=== PATIENT | male | born 1940 | race Native Hawaiian/Other Pacific Islander ===

== ENCOUNTER 2016-08-11 14:44 | Inpatient (IN) | payer MEDICARE, BC ==
[2016-08-11] VITALS (7 sets, daily range): BP systolic 130–144; BP diastolic 69–81; PULSE 99–110; RESP 16–26; TEMP 98.7–100.1; O2SAT 96–99
[~2016-08-11] VITALS: Ht 167.6 cm; Wt 70.0 kg
[~2016-08-11 14:44] MED LIST: FLOR250C PO; LEVA500T PO; VENL-39 PO
[2016-08-11] MEDS ORDERED: SODIUM CHLORIDE 0.9% FLUSH 5 ML FLUSH IVF PRN (15:00)
--- NOTE | 2016-08-11 15:43 | RADRPT ---
EXAM DATE/TIME: 08/11/2016 15:22 [facility] COMPARISON: No previous studies available for comparison. INDICATIONS : Diffuse abdominal pain with generalized weakness.. ORAL CONTRAST: No oral contrast ingested. RADIATION DOSE: 6.24 CTDIvol (mGy) MEDICAL HISTORY : Cardiovascular disease. Carcinoma, prostate. SURGICAL HISTORY : Appendectomy. ENCOUNTER: Initial ACUITY: 1 day PAIN SCALE: 6/10 LOCATION: Diffuse abdomen/pelvis TECHNIQUE: Volumetric scanning of the abdomen and pelvis was performed. Using automated exposure control and ad justment of the mA and/or kV according to patient size, radiation dose was kept as low as reasonably achievable to obtain optimal diagnostic quality images. FINDINGS: LOWER LUNGS: The visualized lower lungs are clear. There is a small retrocardiac hiatal hernia. LIVER: Homogeneous density without lesion. There is no dilation of the biliary tree. No calcified gallston es. SPLEEN: Normal size without lesion. PANCREAS: Within normal limits. KIDNEYS: Normal in size and shape. There is no mass, stone, or hydronephrosis. ADRENAL GLANDS: Within normal limits. VASCULAR: There is no aortic aneurysm. BOWEL/MESENTERY: The stomach, small bowel, and colon demonstrate no acute abnormality. There is no free intraperitone al air or fluid. ABDOMINAL WALL: Within normal limits. RETROPERITONEUM: There is no lymphadenopathy. BLADDER: No wall thickening or mass. REPRODUCTIVE: There are radiation markers in the prostate gland. INGUINAL: There is no lymphadenopathy or hernia. MUSCULOSKELETAL: Within normal limits for patient age. CONCLUSION: 1. Unremarkable nonobstructive bowel gas pattern. No oral contrast was given limiting the sensitivity . 2. Small hiatal hernia. 3. Radiation markers within the prostate gland. Nando Siegel MD on August 11, 2016 at 15:40 Board Certified Radiologist. This report was verified electronically.
[2016-08-11 15:46] LABS: AUTOMATED NEUTROPHIL # 4.2 TH/MM3 (1.8-7.7); BASOPHIL % 0.3 % (0.0-2.0); EOSINOPHIL % 0.6 % (0.0-4.0); HEMATOCRIT 42.8 % (39.0-51.0); HEMO FLAGS DIFF FINAL; LYMPH % 12.6 % (9.0-44.0); LYMPHOCYTE # 0.7 TH/MM3 (1.0-4.8); MEAN CELL VOLUME 90.5 FL (80.0-100.0); MEAN CORPUSCULAR HEMOGLOBIN 30.7 PG (27.0-34.0); MEAN CORPUSCULAR HGB CONC 33.9 % (32.0-36.0); MONO % 11.8 % (0.0-8.0); NEUT % 74.7 % (16.0-70.0); PLATELET COUNT 122 TH/MM3 (150-450); RED BLOOD COUNT 4.74 MIL/MM3 (4.50-5.90); RED CELL DISTRIBUTION WIDTH 14.1 % (11.6-17.2); WHITE BLOOD COUNT 5.6 TH/MM3 (4.0-11.0)
[2016-08-11 16:11] LABS: ANION GAP 9 MEQ/L (5-15); AST (GOT) 12 U/L (15-37); BLOOD UREA NITROGEN 20 MG/DL (7-18); CHLORIDE 103 MEQ/L (98-107); GLOMERULAR FILTRATION RATE 58 ML/MIN (>89); POTASSIUM 3.3 MEQ/L (3.5-5.1); SODIUM (NA) 140 MEQ/L (136-145)
[2016-08-11 16:15] LABS: ALKALINE PHOSPHATASE 97 U/L (45-117); ALT (GPT) 8 U/L (12-78); TOTAL BILIRUBIN ADULT 0.8 MG/DL (0.2-1.0)
--- NOTE | 2016-08-11 16:15 | PD ---
HPI Chief Complaint: Altered Mental Status Time Seen by Provider: 15:00 Travel History International Travel<30 days: No Contact w/Intl Traveler<30days: No Traveled to known affect area: No History of Present Illness HPI Patient is a 75-year-old male who presents emergency Department with generalized weakness, lethargy. Patient has had a progressive decline per family over the course of the last several days. He's having increasing generalized weakness, lower extremity edema. No history of heart failure, son who is also physician, states that he has had one previous stent and previous bigeminy but no history of failure. Patient complains of left upper quadrant abdominal pain throughout much of the morning that was severe, crampy. No nausea vomiting or diarrhea. No no urinary symptoms. The abdominal pain resolved shortly after EMS arrival and patient is asymptomatic at this time without any complaints. Family states that he is no longer able to walk independently which she was able to do just within the last week. PFSH Past Medical History Heart Rhythm Problems: No Cancer: Yes (PROSTATE) Cardiovascular Problems: Yes High Cholesterol: Yes Endocrine: No Genitourinary: Yes Neurologic: Yes ("TREMORS") Psychiatric: No Reproductive: No Respiratory: No Seizures: No Tetanus Vaccination: Unknown Past Surgical History Abdominal Surgery: Yes (APPENDECTOMY) Appendectomy: Yes Cardiac Surgery: Yes (HEART CATH) Ear Surgery: No Endocrine Surgery: No Eye Surgery: No Genitourinary Surgery: Yes (POSSIBLE TURP?) Gynecologic Surgery: No Neurologic Surgery: No Oral Surgery: Yes (TONSILECTOMY) Thoracic Surgery: No Other Surgery: Yes Social History Alcohol Use: No Tobacco Use: No Substance Use: No Allergies-Medications (Allergen,Severity, Reaction): Coded Allergies: No Known Allergies (Verified , 08/11/16) Reported Meds & Prescriptions Reported Meds & Active Scripts Active Florastor (Saccharomyces Boulardii) 250 Mg Cap 250 Mg PO DAILY 7 Days Levaquin 500 Mg Tab (Levofloxacin) 500 Mg Tab 500 Mg PO DAILY Reported Venlafaxine Hcl Er 75 Mg Tab (Venlafaxine HCl) 75 Mg Karena 75 Mg PO DAILY Review of Systems Except as stated in HPI: all other systems reviewed are Neg Physical Exam Narrative GENERAL: Pleasant elderly male in no acute distress SKIN: Warm and dry. HEAD: Normocephalic. EYES: Pupils equal and round. No scleral icterus. No injection or drainage. ENT: No nasal bleeding or discharge. Mucous membranes pink and moist. NECK: Supple CARDIOVASCULAR: Regular rate and rhythm. No murmur appreciated. RESPIRATORY: No accessory muscle use. Clear to auscultation. Breath sounds equal bilaterally. GASTROINTESTINAL: Abdomen soft, non-tender, nondistended. MUSCULOSKELETAL: 2+ bilateral lower extremity edema. Generally weak in the lower extremities unable to lift the legs more than 5 inches off the bed. Unable to ambulate independently. NEUROLOGICAL: Awake and alert. Grossly nonfocal neuro exam. Motor grossly within normal limits. Normal speech. PSYCHIATRIC: Appropriate mood and affect; insight and judgment normal. Data Data Last Documented VS Vital Signs Date Time Temp Pulse Resp B/P Pulse Ox O2 Delivery O2 Flow Rate FiO2 08/11/16:18 99 08/11/16 15:16 98.7 100 20 130/79 Orders Complete Blood Count With Diff (08/11/16 15:00) Comprehensive Metabolic Panel (08/11/16 15:00) Lipase (08/11/16 15:00) Urinalysis - C+S If Indicated (08/11/16 15:00) Ct Abd/Pel W/O Iv Contrast (08/11/16 15:00) Iv Access Insert/Monitor (08/11/16 15:00) Ecg Monitoring (08/11/16 15:00) Oximetry (08/11/16 15:00) Sodium Chloride 0.9% Flush (Ns Flush) (08/11/16 15:00) Electrocardiogram (08/11/16 15:00) Ckmb (Isoenzyme) Profile (08/11/16 15:00) Troponin I (08/11/16 15:00) Chest, Single Ap (08/11/16 ) B-Type Natriuretic Peptide (08/11/16 16:07) Sodium Chlor 0.9% 1000 Ml Inj (Ns 1000 M (08/11/16 16:45) Admit Order (Ed Use Only) (08/11/16 16:41) Labs Laboratory Tests Test 08/11/16 15:30 White Blood Count 5.6 TH/MM3 Red Blood Count 4.74 MIL/MM3 Hemoglobin 14.5 GM/DL Hematocrit 42.8 % Mean Corpuscular Volume 90.5 FL Mean Corpuscular Hemoglobin 30.7 PG Mean Corpuscular Hemoglobin 33.9 % Concent Red Cell Distribution Width 14.1 % Platelet Count 122 TH/MM3 Mean Platelet Volume 9.5 FL Neutrophils (%) (Auto) 74.7 % Lymphocytes (%) (Auto) 12.6 % Monocytes (%) (Auto) 11.8 % Eosinophils (%) (Auto) 0.6 % Basophils (%) (Auto) 0.3 % Neutrophils # (Auto) 4.2 TH/MM3 Lymphocytes # (Auto) 0.7 TH/MM3 Monocytes # (Auto) 0.7 TH/MM3 Eosinophils # (Auto) 0.0 TH/MM3 Basophils # (Auto) 0.0 TH/MM3 CBC Comment DIFF FINAL Differential Comment Sodium Level 140 MEQ/L Potassium Level 3.3 MEQ/L Chloride Level 103 MEQ/L Carbon Dioxide Level 28.0 MEQ/L Anion Gap 9 MEQ/L Blood Urea Nitrogen 20 MG/DL Creatinine 1.22 MG/DL Estimat Glomerular Filtration 58 ML/MIN Rate Random Glucose 89 MG/DL Calcium Level 8.3 MG/DL Total Bilirubin 0.8 MG/DL Aspartate Amino Transf 12 U/L (AST/SGOT) Alanine Aminotransferase 8 U/L (ALT/SGPT) Alkaline Phosphatase 97 U/L Total Creatine Kinase 71 U/L Troponin I LESS THAN 0.02 NG/ML Total Protein 6.9 GM/DL Albumin 3.7 GM/DL Lipase 174 U/L MDM Medical Decision Making Medical Screen Exam Complete: Yes Emergency Medical Condition: Yes Medical Record Reviewed: Yes Differential Diagnosis 75-year-old male here with complaint of generalized weakness/lethargy, abdominal pain now resolved., No lower extremity edema Differential includes new onset heart failure, volume overload, venous stasis, dehydration, electrolyte abnormality, UTI, failure to thrive, arrhythmia, ACS, peritoneal pathology less likely given patient's abdominal exam is benign and no pain at this time. Narrative Course Patient placed on monitor, IV established and blood obtained. Twelve-lead EKG showed sinus tachycardia with frequent PVCs, rate [address] abnormalities, normal intervals. Portal chest x-ray obtained that by my read shows no acute abnormality. CBC, CMP, lipase, BNP, troponin, CK-MB unremarkable. BNP and urinalysis remains pending at the time this dictation.. CT abdomen and pelvis unremarkable. I spoke with patient's son, who is also a physician and is patient's primary care provider, he would like patient admitted to Dr. Morales. Dr. Morales accepts admission. Diagnosis Primary Impression: Generalized weakness Additional Impression: Failure to thrive in adult Admitting Information Admitting Physician Requests: Observation Daniela Flores MD Aug 11, 2016 16:15
[2016-08-11 16:26] LABS: CREATINE KINASE 71 U/L (39-308)
[2016-08-11] MEDS ORDERED: SODIUM CHLOR 0.9% 1000 ML INJ 1,000 ML IV ONE (16:45)
[2016-08-11] MEDS ORDERED: ONDANSETRON HCL 4 MG/2 ML VIAL IVP PRN (17:00)
[2016-08-11] MEDS ORDERED: SODIUM CHLORIDE 0.9% FLUSH 5 ML FLUSH FLUSH PRN (17:00)
[2016-08-11] MEDS ORDERED: NALOXONE HCL 0.4 MG/ML AMP IV PRN (17:00)
--- NOTE | 2016-08-11 17:01 | RADRPT ---
EXAM DATE/TIME: 08/11/2016 16:34 [facility] COMPARISON: CHEST SINGLE AP, February 14, 2014, 1:26. INDICATIONS : Short of breath. MEDICAL HISTORY : None. SURGICAL HISTORY : None. ENCOUNTER: Initial ACUITY: 2 days PAIN SCORE: 0/10 LOCATION: Bilateral chest FINDINGS: A single view of the chest demonstrates the lungs to be symmetrically aerated without evidence of mas s, infiltrate or effusion. There is mild atelectasis and/or scarring at the lung bases. The cardiome diastinal contours are unremarkable. Osseous structures are intact. CONCLUSION: No acute disease. Nando Siegel MD on August 11, 2016 at 16:59 Board Certified Radiologist. This report was verified electronically.
[2016-08-11] MEDS ORDERED: POTASSIUM CL 40 MEQ/30 ML LIQ UDC PO ONE (18:00)
--- NOTE | 2016-08-11 18:06 | PD.CONS ---
HPI Service cardiology Consult Requested By hospital Reason for Consult cardiac evaluation Primary Care Physician Stephany Portillo MD History of Present Illness admitted with lethargy poor responses at home and lower ext edema no chest pains no sob unable to move all his extremities no syncope has been deteriorating according to last several days eating and drinking ok Review of Systems Consitutional: COMPLAINS OF: Fatigue Past Family Social History Allergies: Coded Allergies: No Known Allergies (Verified , 08/11/16) Past Medical History htn pvcs moderate cad no mi or stents before parkinsonism hyperlipidemia Reported Medications Reported Meds & Active Scripts Active Florastor (Saccharomyces Boulardii) 250 Mg Cap 250 Mg PO DAILY 7 Days Levaquin 500 Mg Tab (Levofloxacin) 500 Mg Tab 500 Mg PO DAILY Reported Venlafaxine Hcl Er (Venlafaxine HCl) 75 Mg Karena 75 Mg PO DAILY Active Ordered Medications Current Medications Medications (Trade) Dose Ordered Sig/Amber Route Start Time Stop Time Status Last Admin (NS 1000 ml Inj) 1,000 ml @ 70 mls/hr [id number] IV 08/11/16 16:54 (NS Flush) 2 ml UNSCH PRN FLUSH 08/11/16 17:00 (NS Flush) 2 ml BID FLUSH 08/11/16 21:00 (Tylenol) 650 mg Q4H PRN PO 08/11/16 17:00 (Zofran Inj) 4 mg Q6H PRN IVP 08/11/16 17:00 (Heparin Inj) 5,000 units Q12H SQ 08/11/16 18:00 (Narcan Inj) 0.4 mg UNSCH PRN IV 08/11/16 17:00 (KCl 40 Meq/30 ml Liq) 40 meq ONCE ONCE PO 08/11/16 18:00 08/11/16 18:01 Non-Formulary Medication 250 mg DAILY PO 08/12/16 09:00 UNV Non-Formulary Medication 75 mg DAILY PO 08/12/16 09:00 UNV Family History non contributing Social History lives with no alcohol no drugs no tobacco Physical Exam Vital Signs Vital Signs Date Time Temp Pulse Resp B/P Pulse Ox O2 Delivery O2 Flow Rate FiO2 08/11/16 15:18 99 08/11/16 15:16 98.7 100 20 130/79 99 Physical Exam heent unremarkable' heart s1s2 lung clear abdomen free ext trace edema Laboratory Laboratory Tests Test 08/11/16 15:30 White Blood Count 5.6 Red Blood Count 4.74 Hemoglobin 14.5 Hematocrit 42.8 Mean Corpuscular Volume 90.5 Mean Corpuscular Hemoglobin 30.7 Mean Corpuscular Hemoglobin 33.9 Concent Red Cell Distribution Width 14.1 Platelet Count 122 Mean Platelet Volume 9.5 Neutrophils (%) (Auto) 74.7 Lymphocytes (%) (Auto) 12.6 Monocytes (%) (Auto) 11.8 Eosinophils (%) (Auto) 0.6 Basophils (%) (Auto) 0.3 Neutrophils # (Auto) 4.2 Lymphocytes # (Auto) 0.7 Monocytes # (Auto) 0.7 Eosinophils # (Auto) 0.0 Basophils # (Auto) 0.0 CBC Comment DIFF FINAL Differential Comment Sodium Level 140 Potassium Level 3.3 Chloride Level 103 Carbon Dioxide Level 28.0 Anion Gap 9 Blood Urea Nitrogen 20 Creatinine 1.22 Estimat Glomerular Filtration 58 Rate Random Glucose 89 Calcium Level 8.3 Total Bilirubin 0.8 Aspartate Amino Transf 12 (AST/SGOT) Alanine Aminotransferase 8 (ALT/SGPT) Alkaline Phosphatase 97 Total Creatine Kinase 71 Troponin I LESS THAN 0.02 B-Type Natriuretic Peptide 50 Total Protein 6.9 Albumin 3.7 Lipase 174 Result Diagram: 08/11/16 1530 08/11/[address] abdomen and ecg and xr noted k 3.3 being replaced pvcs which is chronic bnp and troponin negative Assessment and Plan Problem List: (1) Generalized weakness (2) Failure to thrive in adult Assessment and Plan cardiac status stable will need full neuro assessment get ct head and DR Waldron to see his neurologist Stephany Portillo MD Aug 11, 2016 18:06
--- NOTE | 2016-08-11 18:58 | MH ---
cc: WELLINGTON MORALES MD DATE OF ADMISSION 08/11/2016 DATE OF 1940 CHIEF COMPLAINT Altered mental status, atypical chest pain HISTORY OF PRESENT ILLNESS This is a pleasant 75-year-old male who has begun suffering with some generalized weakness and lethargy. is present in the room and states that the patient has noticed a decline over the past several days, but symptoms seemed to start happening fairly quickly today. His generalized weakness has increased to the point that he could not walk alone. He has had some chronic lower extremity edema, but this has increased over the past few days. According to the record, the patient's son who is a physician states that the patient does have a cardiac history and has had one previous stent, some ventricular bigeminy noted in a sinus rhythm but no signs of heart failure. Currently the patient has complained off and on with some upper right quadrant pain and some epigastric pain which has waxed and waned approximately 9:00 a.m. The pain became worse this a.m. The patient denies any nausea and vomiting. Denies any shortness of breath, is positive for generalized weakness but no diarrhea. No constipation. The patient's bowels moved yesterday, normal consistency, normal amount. The patient does have complaints of a mild headache but no dizziness. No syncopal episodes. No change in appetite. No recent weight gain or weight loss. states that the patient was able to do his normal ADLs this past week and has had a big change, especially over the last 24 hours. states the patient had a low grade fever yesterday 100.1, but no fever today. The patient is answering questions appropriately but seems to think the patient has had some confusion of current situation. PAST MEDICAL HISTORY 1. Prostate cancer 2. Cardiovascular disease with coronary artery disease, 3. Hyperlipidemia. 4. Neurologic tremors. 5. Small hiatal hernia, 6. Gastroesophageal reflux disease. PAST SURGICAL HISTORY 1. Appendectomy, 2. Previous heart cath 3. Some type of surgery, possible TURP? This is according to the record. 4. tonsillectomy. ALLERGIES None known MEDICATIONS Reconciled includes 1. Venlafaxine 2. Florastor 3. Levaquin. Unknown dates when the patient started taking it. SOCIAL HISTORY The patient is , currently lives with his . She is at his bedside and assisting with history and general information. The patient denies any alcohol use, was a light tobacco user in his younger days but quit approximately 30 years ago. Denies any substance abuse other than his routine medications. FAMILY HISTORY Diabetes, although patient is not a diabetic, unknown diabetic REVIEW OF SYSTEMS A 12-point review was obtained. Positives noted are generalized weakness, pedal edema, right epigastric and upper quadrant pain and other systems negative or unremarkable PHYSICAL EXAMINATION VITAL SIGNS: Temperature is 98.7, pulse of 100, respirations 20, blood pressure 130/79, O2 sat 99 on room air. GENERAL: A 75-year-old male resting in the bed no acute distress minimal conversation but does answer simple questions yes or no. HEENT: Atraumatic, normocephalic. Pupils equal, round, reactive to light and accommodation at three. No scleral icterus. No drainage nasally or orbital. Mucous membranes are pink and moist. NECK: Supple. No JVD. CARDIOVASCULAR: Regular rate and rhythm. No murmurs, rubs or gallops are audible, 2+ pitting edema bilateral lower extremities. Pulses are intact. RESPIRATORY: Breath sounds are equal bilateral anteriorly and posteriorly with no wheezes, rales or rhonchi. He does have some minimal decreased breath sounds, more so on the left lower lobe. He is not using any accessory muscles to breathe. ABDOMEN: Round, soft, nontender, nondistended. Active bowel sounds in all four quads. No guarding. MUSCULOSKELETAL: 2+ bilateral lower extremity edema. He can overcome resistance with his lower legs. Gait was not examined. Equal hand head of loss prevention on command 4/5 bilateral. NEUROLOGIC: He is alert and oriented. He is a fair historian. is assisting with a lot of the history information. Speech is clear. BACK: No CV tenderness. PSYCHIATRIC: Appropriate mood and affect. DIAGNOSTIC DATA WBC count 5.6, RBC 4.74, hemoglobin 14.5, hematocrit 42.8, platelet count 122, neutrophil auto count 74.7, monocyte auto count 11.8. Chemistry - sodium 140, potassium 3.3, chloride 103, carbon dioxide 28, amnion gap nine, BUN 20, creatinine 1.22, GFR 58, calcium 8.3, AST 12, ALT eight, troponin less than 0.02. BNP was is 50. Total protein 6.9, albumin 3.7, lipase 174. IMAGING STUDIES Abdomen and pelvis CT shows unremarkable nonobstructive gas pattern, small hiatal hernia, radiation markers within the prostate gland. Chest x-ray - no acute disease. ASSESSMENT/PLAN 1. Altered mental status 2. Hypertension, 3. Hyperlipidemia, 4. Hypokalemia, 5. Thrombocytopenia, mild 6. Acute kidney injury with dehydration 7. Atypical chest pain, rule out cardiac event 8. Parkinson's disease, 9. Generalized weakness, 10. Failure to thrive as an adult. PLAN Admit in observation. We will consult neurology and cardiology for their expert opinion. Gentle hydration but monitor for any signs of shortness of breath or new onset congestive heart failure. Treat him with potassium in the ER x1 and we will recheck a BMP in the morning. CT scan is ordered of the brain without contrast. We will reconcile his home medications with the exception of Levaquin. The patient will be on bedrest out of bed only with assistance, regular diet, cardiac monitoring, troponins x3 to rule out a cardiac event, UA which is pending. We will continue further testing and monitoring and provide supportive care to this patient and his family. Currently the patient is full code, full aggressive care and we will continue to see. Dictated by RONEN Yañez Wellington Morales MD JP/ /6:01 PM /11:14 AM PT WAS SEEN AND EXAMINED ON DAY OF ADMISSION ABOVE, IN ER FACE TO FACE TIME SPENT WITH PT CHART WAS REVIEWED IN DETAIL, INCLUDING LABS MEDS AND RAD DATA NOTES WERE REVIEWED DW ER PHYSICIAN BRANDON HARDWICK ABOUT PLAN OF CARE BRANDON PT KRISH
--- NOTE | 2016-08-11 19:03 | RADRPT ---
EXAM DATE/TIME: 08/11/2016 18:19 [facility] COMPARISON: CT BRAIN W/O CONTRAST, February 14, 2014, 10:24. INDICATIONS : Altered mental status with weakness. RADIATION DOSE: 37.15 CTDIvol (mGy) MEDICAL HISTORY : Carcinoma, prostate. Cardiovascular disease SURGICAL HISTORY : Appendectomy. ENCOUNTER: Initial ACUITY: 1 day PAIN SCALE: 0/10 LOCATION: Cranial TECHNIQUE: Multiple contiguous axial images were obtained of the head. Using automated exposure control and adj ustment of the mA and/or kV according to patient size, radiation dose was kept as low as reasonably a chievable to obtain optimal diagnostic quality images. FINDINGS: The ventricles are dilated. There is some widening of the sylvian fissure but the remaining sulci do not appear significantly distended. The basal cisterns are patent. No extra-axial fluid collection s, areas of hemorrhage, mass effect or acute infarction are seen. There is some motion blurring seen at the inferior aspect of the brain. A repeat series of this region was performed. There is some m ucosal thickening at the maxillary sinuses bilaterally. CONCLUSION: 1. Prominent dilatation of the ventricles. This configuration is unchanged from the prior exam. This represents some degree of hydrocephalus. Normal pressure hydrocephalus can have this appearance. T his can be correlated with the patient's clinical status. Again when compared to the priro exam no si gnificant change has occurred. 2. Sinus disease. Jose Johnston MD on August 11, 2016 at 18:49 Board Certified Radiologist. This report was verified electronically.
[2016-08-11] MEDS: SODIUM CHLOR 0.9% 1000 ML INJ 1,000 ML IV SCH ×2 (19:09→21:44)
[2016-08-11] MEDS: HEPARIN SODIUM - SQ 10,000 UNITS/ML VIAL SQ SCH (19:10)
[2016-08-11] MEDS: SODIUM CHLORIDE 0.9% FLUSH 5 ML FLUSH FLUSH SCH (21:44)
[2016-08-11] MEDS: ACETAMINOPHEN 325 MG TAB PO PRN (21:45)
[2016-08-11] MEDS: cefTRIAXone INJ 1,000 MG in SODIUM CHLORIDE 0.9% INJ 100 ML IV SCH (23:25)
[2016-08-12] VITALS (7 sets, daily range): BP systolic 119–144; BP diastolic 66–81; PULSE 94–116; RESP 16–20; TEMP 97.6–102.3; O2SAT 95–98
[2016-08-12] MEDS: AZITHROMYCIN INJ 500 MG in SODIUM CHLOR 0.9% 250 ML INJ 250 ML IV SCH (00:40)
[2016-08-12] MEDS: ACETAMINOPHEN 325 MG TAB PO PRN ×2 (02:03→16:18)
[2016-08-12 03:46] LABS: AUTOMATED NEUTROPHIL # 3.6 TH/MM3 (1.8-7.7); BASOPHIL % 0.7 % (0.0-2.0); EOSINOPHIL % 0.1 % (0.0-4.0); HEMATOCRIT 42.3 % (39.0-51.0); HEMO FLAGS DIFF FINAL; LYMPH % 21.4 % (9.0-44.0); LYMPHOCYTE # 1.2 TH/MM3 (1.0-4.8); MEAN CELL VOLUME 90.9 FL (80.0-100.0); MEAN CORPUSCULAR HEMOGLOBIN 30.7 PG (27.0-34.0); MEAN CORPUSCULAR HGB CONC 33.8 % (32.0-36.0); MONO % 12.8 % (0.0-8.0); PLATELET COUNT 111 TH/MM3 (150-450); RED BLOOD COUNT 4.65 MIL/MM3 (4.50-5.90); RED CELL DISTRIBUTION WIDTH 13.8 % (11.6-17.2); WHITE BLOOD COUNT 5.5 TH/MM3 (4.0-11.0)
[2016-08-12 04:12] LABS: ANION GAP 10 MEQ/L (5-15); BICARBONATE 23.4 MEQ/L (21.0-32.0); BLOOD UREA NITROGEN 14 MG/DL (7-18); CHLORIDE 107 MEQ/L (98-107); GLOMERULAR FILTRATION RATE 70 ML/MIN (>89); POTASSIUM 3.6 MEQ/L (3.5-5.1); SODIUM (NA) 140 MEQ/L (136-145)
[2016-08-12] MEDS: HEPARIN SODIUM - SQ 10,000 UNITS/ML VIAL SQ SCH ×2 (06:07→17:55)
[2016-08-12] MEDS: SODIUM CHLORIDE 0.9% FLUSH 5 ML FLUSH FLUSH SCH ×2 (08:07→21:00)
[2016-08-12] MEDS: VENLAFAXINE HCL XR 75 MG CAP PO SCH (08:09)
[2016-08-12] MEDS ORDERED: VENLAFAXINE HCL 75 MG PO SCH (09:00)
[2016-08-12] MEDS ORDERED: NON-FORMULARY DRUG (Saccharomyces Boulardii (Florastor) 250 MG) PO SCH (09:00)
[2016-08-12] MEDS ORDERED: [UNRECOGNIZED DRUG - OTHER] PO SCH (09:00)
--- NOTE | 2016-08-12 09:57 | HHI.PR ---
Subjective Remarks Patient is feeling better Offering no complaint Denies any headache dizziness Denies any cough chest pain Denies any abdominal pain Has no bowel movement today As per patient has urinary incontinence Review of system for 10 point system otherwise unremarkable Objective Objective Results - Vital Signs Date Time Temp Pulse Resp B/P Pulse Ox O2 Delivery O2 Flow Rate FiO2 08/12/16 09:36 99.5 112 20 144/81 96 08/12/16 05:14 98.4 94 16 132/75 97 08/12/16 01:03 99.2 110 16 120/68 95 08/11/16 22:29 100.0 110 16 138/71 97 08/11/16 21:01 104 08/11/16 20:55 100.1 08/11/16 19:13 110 25 144/81 96 Nasal Cannula 2 08/11/16 17:59 99 26 133/69 99 08/11/16 15:18 99 08/11/16 15:16 98.7 100 20 130/79 99 Result Diagram: 08/12/16 0330 08/12/16 0330 Other Results Laboratory Tests Test 08/11/16 08/11/16 08/12/16 15:30 21:50 03:30 White Blood Count 5.6 5.5 Red Blood Count 4.74 4.65 Hemoglobin 14.5 14.3 Hematocrit 42.8 42.3 Mean Corpuscular Volume 90.5 90.9 Mean Corpuscular Hemoglobin 30.7 30.7 Mean Corpuscular Hemoglobin 33.9 33.8 Concent Red Cell Distribution Width 14.1 13.8 Platelet Count 122 111 Mean Platelet Volume 9.5 9.0 Neutrophils (%) (Auto) 74.7 65.0 Lymphocytes (%) (Auto) 12.6 21.4 Monocytes (%) (Auto) 11.8 12.8 Eosinophils (%) (Auto) 0.6 0.1 Basophils (%) (Auto) 0.3 0.7 Neutrophils # (Auto) 4.2 3.6 Lymphocytes # (Auto) 0.7 1.2 Monocytes # (Auto) 0.7 0.7 Eosinophils # (Auto) 0.0 0.0 Basophils # (Auto) 0.0 0.0 CBC Comment DIFF FINAL DIFF FINAL Differential Comment Sodium Level 140 140 Potassium Level 3.3 3.6 Chloride Level 103 107 Carbon Dioxide Level 28.0 23.4 Anion Gap 9 10 Blood Urea Nitrogen 20 14 Creatinine 1.22 1.04 Estimat Glomerular Filtration 58 70 Rate Random Glucose 89 96 Calcium Level 8.3 7.9 Total Bilirubin 0.8 Aspartate Amino Transf 12 (AST/SGOT) Alanine Aminotransferase 8 (ALT/SGPT) Alkaline Phosphatase 97 Total Creatine Kinase 71 Troponin I LESS THAN 0.02 LESS THAN 0.02 LESS THAN 0.02 B-Type Natriuretic Peptide 50 Total Protein 6.9 Albumin 3.7 Lipase 174 Date/Time Procedure Status Source Growth 08/12/16 03:30 Aerobic Blood Culture Received Blood Peripheral Pending 08/12/16 03:30 Anaerobic Blood Culture Received Blood Peripheral Pending Physical Exam Physical Exam VITAL SIGNS: Reviewed GENERAL: A 75-year-old male resting in the bed no acute distress HEENT: Atraumatic, normocephalic. Pupils equal, round, reactive to light and accommodation at three. No scleral icterus. No drainage nasally or orbital. Mucous membranes are pink and moist. NECK: Supple. No JVD. CARDIOVASCULAR: Regular rate and rhythm. No murmurs, rubs or gallops are audible, 2+ pitting edema bilateral lower extremities. Pulses are intact. RESPIRATORY: Breath sounds are equal bilateral anteriorly and posteriorly with no wheezes, rales or rhonchi. He is not using any accessory muscles to breathe. ABDOMEN: Round, soft, nontender, nondistended. Active bowel sounds in all four quads. No guarding. MUSCULOSKELETAL: Trace pedal edema. He can overcome resistance with his lower legs. Gait was not examined. 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 NEUROLOGIC: He is alert and oriented. He is a fair historian. is assisting with a lot of the history information. Speech is clear. BACK: No CV tenderness. PSYCHIATRIC: Appropriate mood and affect. A/P Assessment and Plan 1. Altered mental status 2. Hypertension, 3. Hyperlipidemia, 4. Hypokalemia, 5. Thrombocytopenia, mild 6. Acute kidney injury with dehydration 7. Atypical chest pain, rule out cardiac event 8. Parkinson's disease, 9. Generalized weakness, 10. Failure to thrive as an adult. PLAN Labs reviewed Awaiting consult neurology cardiology input appreciated discussed with him Serial troponin negative Low potassium better Low platelets stable CT scan of head report reviewed Plan for MRI brain Had low-grade fever started on Zithromax and Rocephin. Will follow culture UA which is pending. Discussed with patient and at bedside Discussed with son on phone Discussed with Jennifer Marvin MD Aug 12, 2016 09:57
[2016-08-12] MEDS: CARBIDOPA/LEVODOPA 25 MG/100 MG TAB PO SCH ×3 (10:13→13:43)
--- NOTE | 2016-08-12 11:12 | MB ---
cc: JEFFY GAONA M.D. DATE OF CONSULTATION 08/12/2016 REASON FOR CONSULTATION This is a 74-year-old seen in neurological consultation. He was brought to the hospital yesterday because of generalized weakness and some confusion and lethargy. He has a history of Parkinson's followed by Dr. Waldron and has been taking Sinemet 25/100 four times a day and Neupro patch 6 mg a day. History of prostate cancer, coronary artery disease. He normally walks without assistance. describes that he has become quite stiff and was no longer able to walk even with help. The CT brain showed a enlarged ventricles but stable in comparison to January 2014. CBC and chemistry noted. PHYSICAL EXAM On exam, the patient is awake and grossly oriented, seems to be aware of the place, but he hesitates to express himself. He knew his age. He follows commands. He has some moderate bradykinesis. There may be some left-sided neglect. He has moderate rigidity diffusely, probably now worse on the left arm than right. Mild Parkinsonian tremor noted. Slight flattening on the right nasolabial fold. Reflexes trace versus absent throughout. Plantar responses flat. ASSESSMENT 1. Acute encephalopathy with some increasing confusion, weakness, lethargy. 2. Parkinson's 3. Prostate cancer 4. Coronary artery disease. His neurologic decline may be from metabolic encephalopathy, look for underlying infectious process. I do not see a urinalysis. If not done, we will requested this. Look for other infectious process. We will check for ischemic stroke with an MRI of the brain. There may be some left-sided neglect. The CT was negative for acute process. There is hydrocephalus, but this is stable in comparison to prior studies. Continued antibiotics and Sinemet 25/100 four times a day. Thank you for asking us to assist in his care. MD ALIDA Frank/UBALDO /9:14 AM /11:02 AM
[2016-08-12] MEDS ORDERED: GADODIAMIDE PF 287 MG/ML 20 ML VIAL (for RAD MRI) IV ONE (12:41)
--- NOTE | 2016-08-12 13:02 | RADRPT ---
EXAM DATE/TIME: 08/12/2016 12:21 [facility] COMPARISON: CT BRAIN W/O CONTRAST, August 11, 2016, 18:19. MRI BRAIN W & W/O CONTRAST, February 14, 2014, 13:32 . INDICATIONS : CVA. Altered mental status and weakness. CONTRAST: 20 cc Omniscan (gadodiamide) IV MEDICAL HISTORY : Parkinson's disease. Poste cancer. SURGICAL HISTORY : Appendectomy. Tonsillectomy. ENCOUNTER: Initial ACUITY: 2 day PAIN SCORE: 0/10 LOCATION: Head TECHNIQUE: Multiplanar, multisequence MRI of the brain was performed both prior to and following the administrat ion of paramagnetic contrast. FINDINGS: CEREBRUM: The ventricular system remains diffusely prominent however this is only slightly increased in size fr om the prior MRI. No evidence of midline shift, mass lesion, hemorrhage or acute infarction. No extr aaxial fluid collections are seen. The pituitary gland and suprasellar cistern are normal in configu ration. WHITE MATTER: Increased signal is again noted in the periventricular white matter on the flair weighted images. The re are scattered punctate areas of increased signal in the centrum semiovale POSTERIOR FOSSA: The cerebellum and brainstem are intact. The 4th ventricle is midline. The cerebellopontine angle is unremarkable. The cerebellar tonsils are normal in position. DIFFUSION IMAGING: No focal areas of restricted diffusion are seen. No evidence of acute infarction. EXTRACRANIAL: The visualized portions of the orbits are unremarkable. There is mild mucosal thickening in the infer ior maxillary sinuses and ethmoidal air cells. There is a small air-fluid level in the left x-ray sin us and sphenoid sinus. POST-CONTRAST: No abnormal areas of parenchymal or dural enhancement. No evidence of blood-brain barrier breakdown. CONCLUSION: 1. No acute hemorrhage or infarction. 2. The ventricular system remains diffusely prominent with only a slight interval increased in size c ompared to the 2013 exam. 3. Atrophy and chronic small vessel ischemic change. 4. Evidence of mild acute sinusitis with air fluid levels in the left maxillary and sphenoid sinuses. Nando Siegel MD on August 12, 2016 at 12:55 Board Certified Radiologist. This report was verified electronically.
[2016-08-12] MEDS ORDERED: SINE25TA PO (14:50)
[2016-08-12] MEDS ORDERED: KETOROLAC TROMETHAMINE 60 MG/2 ML (IM) VIAL IM ONE (16:30)
[2016-08-12 16:57] LABS: BLOOD, URINE NEG (NEG); GLUCOSE,URINE NEG (NEG); HYALINE CAST, URINE 1 /lpf (RARE); KETONE, URINE NEG (NEG); MUCUS URINE FEW /lpf (OCC); NITRITE,URINE NEG (NEG); PH, URINE 5.5 (5.0-8.5); SQUAMOUS EPITHELIAL CELL URINE <1 /hpf (0-5); URINE COLOR LIGHT-YELLOW (YELLW/STRAW)
[2016-08-12 17:02] LABS: COMMENT (UR) CATH-CULT NOT IND; CULTURE IF INDICATED CATH CULTURE NOT IND
--- NOTE | 2016-08-12 17:43 | PD.CARD.PN ---
Subjective Subjective Remarks lethargic responds to verbal stimuli Objective Vital Signs / I&O Vital Signs Date Time Temp Pulse Resp B/P Pulse Ox O2 Delivery O2 Flow Rate FiO2 08/12/16 16:11 102.3 08/12/16 16:06 99.6 116 18 129/75 95 08/12/16 11:43 99.0 104 18 139/79 98 08/12/16 09:36 99.5 112 20 144/81 96 08/12/16 05:14 98.4 94 16 132/75 97 08/12/16 01:03 99.2 110 16 120/68 95 08/11/16 22:29 100.0 110 16 138/71 97 08/11/16 21:01 104 08/11/16 20:55 100.1 08/11/16 19:13 110 25 144/81 96 Nasal Cannula 2 08/11/16 17:59 99 26 133/69 99 Physical Exam spiking temperature ecg and enzymes repeatedly negative Laboratory Laboratory Tests Test 08/11/16 08/12/16 08/12/16 08/12/16 21:50 03:30 12:00 16:18 Troponin I LESS THAN 0.02 LESS THAN 0.02 LESS THAN 0.02 LESS THAN 0.02 NG/ML NG/ML NG/ML NG/ML White Blood Count 5.5 TH/MM3 Red Blood Count 4.65 MIL/MM3 Hemoglobin 14.3 GM/DL Hematocrit 42.3 % Mean Corpuscular Volume 90.9 FL Mean Corpuscular Hemoglobin 30.7 PG Mean Corpuscular Hemoglobin 33.8 % Concent Red Cell Distribution Width 13.8 % Platelet Count 111 TH/MM3 Mean Platelet Volume 9.0 FL Neutrophils (%) (Auto) 65.0 % Lymphocytes (%) (Auto) 21.4 % Monocytes (%) (Auto) 12.8 % Eosinophils (%) (Auto) 0.1 % Basophils (%) (Auto) 0.7 % Neutrophils # (Auto) 3.6 TH/MM3 Lymphocytes # (Auto) 1.2 TH/MM3 Monocytes # (Auto) 0.7 TH/MM3 Eosinophils # (Auto) 0.0 TH/MM3 Basophils # (Auto) 0.0 TH/MM3 CBC Comment DIFF FINAL Differential Comment Sodium Level 140 MEQ/L Potassium Level 3.6 MEQ/L Chloride Level 107 MEQ/L Carbon Dioxide Level 23.4 MEQ/L Anion Gap 10 MEQ/L Blood Urea Nitrogen 14 MG/DL Creatinine 1.04 MG/DL Estimat Glomerular Filtration 70 ML/MIN Rate Random Glucose 96 MG/DL Calcium Level 7.9 MG/DL Test 08/12/16 16:30 Urine Color LIGHT-YELLOW Urine Turbidity CLEAR Urine pH 5.5 Urine Specific [place] 1.007 Urine Protein NEG mg/dL Urine Glucose (UA) NEG mg/dL Urine Ketones NEG mg/dL Urine Occult Blood NEG Urine Nitrite NEG Urine Bilirubin NEG Urine Urobilinogen LESS THAN 2.0 MG/DL Urine Leukocyte Esterase NEG Urine WBC LESS THAN 1 /hpf Urine Squamous Epithelial <1 /hpf Cells Urine Hyaline Casts 1 /lpf Urine Mucus FEW /lpf Microscopic Urinalysis Comment CATH-CULT NOT IND Assessment and Plan Problem List: (1) Generalized weakness Assessment and Plan: family wants to transfer patient to [facility] cardiac status stable will sign off (2) Failure to thrive in adult Assessment and Plan cardiac status stable will need full neuro assessment get ct head and DR Waldron to see his neurologist Stephany Portillo MD Aug 12, 2016 17:43
[2016-08-12] MEDS: SINEMET PO SCH ×2 (21:00→21:11)
[2016-08-12] MEDS: SODIUM CHLOR 0.9% 1000 ML INJ 1,000 ML IV SCH (22:37)
--- NOTE | 2016-08-12 23:03 | EKG ---
Date Performed: 08/11/2016 Time Performed: 16:45:11 PTAGE: 75 years EKG: SINUS TACHYCARDIA WITH FREQUENT VENTRICULAR PREMATURE COMPLEXES ABNORMAL RHYTHM ECG NO PREVIOUS TRACING DOCTOR: Darby Knutson Interpretating Date/Time 08/12/2016 22:58:26
[2016-08-12] MEDS: cefTRIAXone INJ 1,000 MG in SODIUM CHLORIDE 0.9% INJ 100 ML IV SCH (23:36)
[2016-08-13] VITALS (9 sets, daily range): BP systolic 126–152; BP diastolic 65–84; PULSE 69–112; RESP 19–20; TEMP 97.4–99.6; O2SAT 92–98
[2016-08-13] MEDS: AZITHROMYCIN INJ 500 MG in SODIUM CHLOR 0.9% 250 ML INJ 250 ML IV SCH (00:33)
[2016-08-13] MEDS: HEPARIN SODIUM - SQ 10,000 UNITS/ML VIAL SQ SCH ×2 (05:48→16:50)
[2016-08-13] MEDS: VENLAFAXINE HCL XR 75 MG CAP PO SCH (08:44)
[2016-08-13] MEDS: SINEMET PO SCH ×4 (08:44→22:56)
[2016-08-13] MEDS: SODIUM CHLORIDE 0.9% FLUSH 5 ML FLUSH FLUSH SCH ×2 (08:45→21:00)
--- NOTE | 2016-08-13 08:59 | RADRPT ---
EXAM DATE/TIME: 08/13/2016 08:55 [facility] COMPARISON: CHEST SINGLE AP, August 11, 2016, 16:34. INDICATIONS : Cough. MEDICAL HISTORY : None. SURGICAL HISTORY : None. ENCOUNTER: Initial ACUITY: 2 days PAIN SCORE: 0/10 LOCATION: Bilateral chest FINDINGS: A single view of the chest demonstrates the lungs to be symmetrically aerated without evidence of mas s, infiltrate or effusion. The cardiomediastinal contours are unremarkable. Osseous structures are intact. CONCLUSION: No acute disease. Kevin Jones Jr., MD on August 13, 2016 at 8:57 Board Certified Radiologist. This report was verified electronically.
--- NOTE | 2016-08-13 09:10 | HHI.PR ---
Subjective Remarks Patient is feeling better Has some sore throat Offering no complaint. As per patient has a nasal congestion and has some cough Denies any headache dizziness Denies any chest pain Denies any abdominal pain Has no bowel movement 2 days Review of system for 10 point system otherwise unremarkable Objective Objective Results - Vital Signs Date Time Temp Pulse Resp B/P Pulse Ox O2 Delivery O2 Flow Rate FiO2 08/13/16 06:37 99.6 08/13/16 05:09 97.7 08/13/16 03:55 99.6 102 20 152/77 95 08/13/16 00:24 97.4 81 20 126/74 98 08/13/16 00:14 108 08/12/16 19:44 97.6 95 20 119/66 96 08/12/16 16:11 102.3 08/12/16 16:06 99.6 116 18 129/75 95 08/12/16 11:43 99.0 104 18 139/79 98 08/12/16 09:36 99.5 112 20 144/81 96 Result Diagram: 08/12/16 0330 08/12/16 0330 Other Results Laboratory Tests Test 08/12/16 08/12/16 08/12/16 12:00 16:18 16:30 Troponin I LESS THAN 0.02 LESS THAN 0.02 Urine Color LIGHT-YELLOW Urine Turbidity CLEAR Urine pH 5.5 Urine Specific [place] 1.007 Urine Protein NEG Urine Glucose (UA) NEG Urine Ketones NEG Urine Occult Blood NEG Urine Nitrite NEG Urine Bilirubin NEG Urine Urobilinogen LESS THAN 2.0 Urine Leukocyte Esterase NEG Urine WBC LESS THAN 1 Urine Squamous Epithelial <1 Cells Urine Hyaline Casts 1 Urine Mucus FEW Microscopic Urinalysis Comment CATH-CULT NOT IND Date/Time Procedure Status Source Growth 08/12/16 03:30 Aerobic Blood Culture Received Blood Peripheral Pending 08/12/16 03:30 Anaerobic Blood Culture Received Blood Peripheral Pending Physical Exam Physical Exam VITAL SIGNS: Reviewed GENERAL: A 75-year-old male resting in the bed no acute distress HEENT: Atraumatic, normocephalic. Pupils equal, round, reactive to light and accommodation at three. No scleral icterus. No drainage nasally or orbital. Slight conjunctival congestion mostly on the left side. Mucous membranes are pink and moist. NECK: Supple. No JVD. CARDIOVASCULAR: Regular rate and rhythm. No murmurs, rubs or gallops are audible, trace edema bilateral lower extremities. Pulses are intact. RESPIRATORY: Breath sounds are equal bilateral anteriorly and posteriorly with no wheezes, rales or rhonchi. He is not using any accessory muscles to breathe. ABDOMEN: Round, soft, nontender, nondistended. Active bowel sounds in all four quads. No guarding. MUSCULOSKELETAL: Trace pedal edema. He can overcome resistance with his lower legs. Gait was not examined. 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 NEUROLOGIC: He is alert and oriented. He is a fair historian. is assisting with a lot of the history information. Speech is clear. Subtle pill- rolling tremors BACK: No CV tenderness. PSYCHIATRIC: Appropriate mood and affect. A/P Assessment and Plan 1. Altered mental status 2. Hypertension, 3. Hyperlipidemia, 4. Hypokalemia, 5. Thrombocytopenia, mild 6. Acute kidney injury with dehydration 7. Atypical chest pain, rule out cardiac event 8. Parkinson's disease, 9. Generalized weakness, 10. Failure to thrive as an adult. PLAN Awaiting labs from this morning Appreciate neurology input discussed with neurologist yesterday MRI report reviewed cardiology input appreciated discussed with him yesterday Serial troponin negative Plan for rapid a strep screen and flu test Low potassium better Low platelets stable X-ray chest report reviewed CT scan of head report reviewed Resolved low-grade fever started on Zithromax and Rocephin. Will follow culture so far negative UA report reviewed. Discussed with patient and at bedside Discussed with case management about transfer to [facility] Discussed with RN Medications reviewed Jennifer Morales MD Aug 13, 2016 09:10
[2016-08-13] MEDS ORDERED: PANTOPRAZOLE SOD 40 MG DELAYED RELEASE TAB PO SCH (09:15)
[2016-08-13] MEDS ORDERED: POLYETHYLENE GLYCOL 17 GM PKG PO SCH (09:15)
[2016-08-13] MEDS: SODIUM CHLOR 0.9% 1000 ML INJ 1,000 ML IV SCH (10:03)
--- NOTE | 2016-08-13 11:25 | EKG ---
Date Performed: 08/12/2016 Time Performed: 11:54:45 PTAGE: 75 years EKG: SINUS TACHYCARDIA WITH FREQUENT VENTRICULAR PREMATURE COMPLEXES ABNORMAL RHYTHM ECG NO PREVIOUS TRACING DOCTOR: Godwin Alvarez Interpretating Date/Time 08/13/2016 11:24:06
[2016-08-13 11:32] LABS: HEMATOCRIT 44.6 % (39.0-51.0); MEAN CELL VOLUME 90.6 FL (80.0-100.0); MEAN CORPUSCULAR HEMOGLOBIN 30.3 PG (27.0-34.0); MEAN CORPUSCULAR HGB CONC 33.5 % (32.0-36.0); PLATELET COUNT 104 TH/MM3 (150-450); RED BLOOD COUNT 4.93 MIL/MM3 (4.50-5.90); RED CELL DISTRIBUTION WIDTH 14.3 % (11.6-17.2); REVIEW FLAG FINAL; WHITE BLOOD COUNT 4.1 TH/MM3 (4.0-11.0)
[2016-08-13 11:48] LABS: BICARBONATE 25.3 MEQ/L (21.0-32.0); POTASSIUM 3.6 MEQ/L (3.5-5.1)
--- NOTE | 2016-08-13 14:38 | PD.ID.CON ---
History of Present Illness Service ID Consult Requested By [facility] [place] Reason for Consult [facility] [place] Primary Care Physician Stephany Portillo MD Diagnoses: History of Present Illness Pt wasw seen and examined on yesterday Aug 12 arounf 3 pm in ED room G 79 Hx was taken from who was at b/s Pt who is a 75 M with Parkinson dz and prostate ca apparently has cold likel smx x 2 days and on day of presentation got very lethargic and thats why the brought hinm in He has a dry cough with occasional expectotration, fever He was seen by his neurologist He was started on broad spectrum abx after presenting with fever up to 103 His fever quickly resolved and his w/u incluf=ding CXR, CT abd/pelvis , brain MRI and UA were unremarkable Also pt s mental status was back to baseline at the time of my examination + household sick exposure to grandchild with mild cold smx Review of Systems ROS Limitations: Poor Historian Except as stated in HPI: all other systems reviewed are Neg Past Family Social History Allergies: Coded Allergies: No Known Allergies (Verified , 08/11/16) Past Medical History parkinson's dz prostate ca Past Surgical History prostate sz, XRT 3 yrs ago Active Ordered Medications Medications where reviewed in EMR Antibiotics Include: CFTX azithro Family History Non-Contributory. Social History No Tobacco, recomte smiking in 30s No ETOH. No Illicit Drugs. Physical Exam Vital Signs Vital Signs Date Time Temp Pulse Resp B/P Pulse Ox O2 Delivery O2 Flow Rate FiO2 08/13/16 11:43 97.9 106 20 127/73 92 08/13/16 08:00 98.8 107 20 132/65 93 08/13/16 08:00 69 08/13/16 06:37 99.6 08/13/16 05:09 97.7 08/13/16 03:55 99.6 102 20 152/77 95 08/13/16 00:24 97.4 81 20 126/74 98 08/13/16 00:14 108 08/12/16 19:44 97.6 95 20 119/66 96 08/12/16 16:11 102.3 08/12/16 16:06 99.6 116 18 129/75 95 Physical Exam CONSTITUTIONAL/GENERAL: This is an adequately nourished patient, in no apparent distress. TUBES/LINES/DRAINS: SKIN: No jaundice, rashes, or lesions. Ecchymoses on upper extremities. No wounds seen anteriorly. Skin temperature appropriate. Not diaphoretic. HEAD: Atraumatic. Normocephalic. EYES: Prominnet coryza b/l eyes Pupils equal and round and reactive. Extraocular motions intact. No scleral icterus. No injection or drainage. Fundi not examined. ENT: Hearing grossly normal. Nose without bleeding or purulent drainage. Throat without visible erythema, exudates, masses, or lesions. NECK: Trachea midline. Supple, nontender. CARDIOVASCULAR: Regular rate and rhythm without murmurs, gallops, or rubs. No JVD. Peripheral pulses symmetric. RESPIRATORY/CHEST: Symmetric, unlabored respirations. Clear to auscultation. Breath sounds equal bilaterally. No wheezes, rales, or rhonchi. GASTROINTESTINAL: Abdomen soft, non-tender, nondistended. No hepato-splenomegaly , or palpable masses. No guarding. Bowel sounds present. GENITOURINARY: Without palpable bladder distension. MUSCULOSKELETAL: Extremities without clubbing, cyanosis, or edema. No joint tenderness or effusion noted. No calf tenderness. No mottling or clubbing. Mild cogwheel rigitity b/l upper and lower extremeties LYMPHATICS: No palpable cervical or supraclavicular adenopathy. NEUROLOGICAL: Awake and alert. Motor and sensory grossly within normal limits. Follows commands. Normal speech Moves all extremities. PSYCHIATRIC: No obvious anxiety/depression. no apparent hallucinations or other psychotic thought process. Laboratory Laboratory Tests Test 08/12/16 08/12/16 08/13/16 16:18 16:30 10:36 Troponin I LESS THAN 0.02 Urine Color LIGHT-YELLOW Urine Turbidity CLEAR Urine pH 5.5 Urine Specific [place] 1.007 Urine Protein NEG Urine Glucose (UA) NEG Urine Ketones NEG Urine Occult Blood NEG Urine Nitrite NEG Urine Bilirubin NEG Urine Urobilinogen LESS THAN 2.0 Urine Leukocyte Esterase NEG Urine WBC LESS THAN 1 Urine Squamous Epithelial <1 Cells Urine Hyaline Casts 1 Urine Mucus FEW Microscopic Urinalysis Comment CATH-CULT NOT IND White Blood Count 4.1 Red Blood Count 4.93 Hemoglobin 14.9 Hematocrit 44.6 Mean Corpuscular Volume 90.6 Mean Corpuscular Hemoglobin 30.3 Mean Corpuscular Hemoglobin 33.5 Concent Red Cell Distribution Width 14.3 Platelet Count 104 Mean Platelet Volume 9.5 Sodium Level 141 Potassium Level 3.6 Chloride Level 106 Carbon Dioxide Level 25.3 Anion Gap 10 Blood Urea Nitrogen 13 Creatinine 1.13 Estimat Glomerular Filtration 64 Rate Random Glucose 125 Calcium Level 7.9 Date/Time Procedure Status Source Growth 08/12/16 03:30 Aerobic Blood Culture - Preliminary Resulted Blood Peripheral NO GROWTH IN 1 DAY 08/12/16 03:30 Anaerobic Blood Culture - Preliminary Resulted Blood Peripheral NO GROWTH IN 1 DAY Result Diagram: 08/13/16 1036 08/13/16 1036 Imaging Last Impressions Chest X-Ray 08/13/16 0000 Signed Impressions: Service Date/Time: July 08:55 - CONCLUSION: No acute disease. Kevin Jones Jr., MD Brain MRI 08/12/16 0000 Signed Impressions: Service Date/Time: Friday, August 12, 2016 12:21 - CONCLUSION: 1. No acute hemorrhage or infarction. 2. The ventricular system remains diffusely prominent with only a slight interval increased in size compared to the 2014 exam. 3. Atrophy and chronic small vessel ischemic change. 4. Evidence of mild acute sinusitis with air fluid levels in the left maxillary and sphenoid sinuses. Nando Siegel MD Abdomen/Pelvis CT 08/11/16 1500 Signed Impressions: Service Date/Time: Thursday, August 11, 2016 15:22 - CONCLUSION: 1. Unremarkable nonobstructive bowel gas pattern. No oral contrast was given limiting the sensitivity. 2. Small hiatal hernia. 3. Radiation markers within the prostate gland. Nando Siegel MD Head CT 08/11/16 0000 Signed Impressions: Service Date/Time: Thursday, August 11, 2016 18:19 - CONCLUSION: 1. Prominent dilatation of the ventricles. This configuration is unchanged from the prior exam. This represents some degree of hydrocephalus. Normal pressure hydrocephalus can have this appearance. This can be correlated with the patient's clinical status. Again when compared to the priro exam no significant change has occurred. 2. Sinus disease. Jose Johnston MD Assessment and Plan Assessment and Plan Acute febrile illness, favouring viral resp infection Mental status change - resolved - CXR, abd CT negative - UA negative in the settings of pre-existing prostate dz (ca sp XRT, sx) - quick improvement High fever up to 103 with no leukocytosis Rec's fu blood clx untill final dw at beside, All questions answered to full extent Discussed Condition With pt and his spouse Katarina Evans MD Aug 13, 2016 14:38
[2016-08-13] MEDS: ACETAMINOPHEN 325 MG TAB PO PRN (16:51)
--- NOTE | 2016-08-13 17:43 | HHI.PR ---
Review/Management Daily Summary according top his he is more alert today taking his own sinemet as he has difficulty with generic going to [facility] where his son works pr requested for the time being Subjective Subjective Comments No acute events reported headache reported just as I was living the floor Active Medications Current Medications Medications (Trade) Dose Ordered Sig/Amber Route Start Time Stop Time Status Last Admin (NS 1000 ml Inj) 1,000 ml @ 70 mls/hr [id number] IV 08/11/16 16:54 08/13/16 10:03 (NS Flush) 2 ml UNSCH PRN FLUSH 08/11/16 17:00 (NS Flush) 2 ml BID FLUSH 08/11/16 21:00 08/11/16 21:44 (Tylenol) 650 mg Q4H PRN PO 08/11/16 17:00 08/13/16 16:51 (Zofran Inj) 4 mg Q6H PRN IVP 08/11/16 17:00 (Heparin Inj) 5,000 units Q12H SQ 08/11/16 18:00 08/13/16 16:50 (Narcan Inj) 0.4 mg UNSCH PRN IV 08/11/16 17:00 Patient Own Medication PT OWN MED: FL[facility]... DAILY PO 08/12/16 09:00 Hold Venlafaxine HCl 75 mg 75 mg DAILY PO 08/12/16 09:00 08/13/16 08:44 Ceftriaxone Sodium 1000 mg/ Sodium Chloride 100 ml @ 200 mls/hr Q24H IV 08/11/16 23:00 08/12/16 23:36 (Zithromax Inj/ NS 250 ml Inj) 250 ml @ 250 mls/hr Q24H IV 08/12/16 00:00 08/13/16 00:33 Patient Own Medication *Patient's own medicati... QID PO 08/12/16 18:00 08/13/16 16:50 (Protonix) 40 mg DAILY PO 08/13/16 09:15 08/13/16 10:01 (Miralax) 17 gm DAILY PO 08/13/16 09:15 08/13/16 10:01 Allergies Allergies Coded Allergies No Known Allergies (Verified08/11/16) Exam I&O / VS 08/12/16 08/12/16 08/13/16 15:00 23:00 07:00 # Voids 1 Vital Signs Date Time Temp Pulse Resp B/P Pulse Ox O2 Delivery O2 Flow Rate FiO2 08/13/16 16:54 97.8 112 20 138/84 93 08/13/16 11:43 97.9 106 20 127/73 92 08/13/16 08:00 98.8 107 20 132/65 93 08/13/16 08:00 69 08/13/16 06:37 99.6 08/13/16 05:09 97.7 08/13/16 03:55 99.6 102 20 152/77 95 08/13/16 00:24 97.4 81 20 126/74 98 08/13/16 00:14 108 08/12/16 19:44 97.6 95 20 119/66 96 Objective Radiology Results Last 48 hours Impressions Chest X-Ray 08/13/16 0000 Signed Impressions: Service Date/Time: July 08:55 - CONCLUSION: No acute disease. Kevin Jones Jr., MD Brain MRI 08/12/16 0000 Signed Impressions: Service Date/Time: Friday, August 12, 2016 12:21 - CONCLUSION: 1. No acute hemorrhage or infarction. 2. The ventricular system remains diffusely prominent with only a slight interval increased in size compared to the 2014 exam. 3. Atrophy and chronic small vessel ischemic change. 4. Evidence of mild acute sinusitis with air fluid levels in the left maxillary and sphenoid sinuses. Nando Siegel MD [facility] Laboratory Tests Test 08/13/16 10:36 White Blood Count 4.1 Red Blood Count 4.93 Hemoglobin 14.9 Hematocrit 44.6 Mean Corpuscular Volume 90.6 Mean Corpuscular Hemoglobin 30.3 Mean Corpuscular Hemoglobin 33.5 Concent Red Cell Distribution Width 14.3 Platelet Count 104 Mean Platelet Volume 9.5 Sodium Level 141 Potassium Level 3.6 Chloride Level 106 Carbon Dioxide Level 25.3 Anion Gap 10 Blood Urea Nitrogen 13 Creatinine 1.13 Estimat Glomerular Filtration 64 Rate Random Glucose 125 Calcium Level 7.9 Date/Time Procedure Status Source Growth 08/12/16 03:30 Aerobic Blood Culture - Preliminary Resulted Blood Peripheral NO GROWTH IN 1 DAY 08/12/16 03:30 Anaerobic Blood Culture - Preliminary Resulted Blood Peripheral NO GROWTH IN 1 DAY Jaci Valdivia MD Aug 13, 2016 17:43
[2016-08-13] MEDS: cefTRIAXone INJ 1,000 MG in SODIUM CHLORIDE 0.9% INJ 100 ML IV SCH (22:57)
== END 2016-08-14 01:28 | disposition short-term general hospital (02) | DRG 682 ==
LOC: NEDAMB 14:44 → NEDA 16:43 → NEPGCP 19:35 → OBSVTOIN 08-12 15:16
PROVIDERS: ADMIT Specialist; ATTEND Specialist
DX: N17.9 Acute kidney failure, unspecified (principal); G93.41 Metabolic encephalopathy; G91.9 Hydrocephalus, unspecified; D69.6 Thrombocytopenia, unspecified; G20 Parkinson's disease; R62.7 Adult failure to thrive; I11.0 Hypertensive heart disease with heart failure; I50.9 Heart failure, unspecified; E86.0 Dehydration; J06.9 Acute upper respiratory infection, unspecified; E78.5 Hyperlipidemia, unspecified; E87.6 Hypokalemia; I25.10 Atherosclerotic heart disease of native coronary artery without angina pectoris; K21.9 Gastro-esophageal reflux disease without esophagitis; I49.3 Ventricular premature depolarization; R32 Unspecified urinary incontinence; Z85.46 Personal history of malignant neoplasm of prostate; Z87.891 Personal history of nicotine dependence; Z95.5 Presence of coronary angioplasty implant and graft
CPT/HCPCS: 70450; 70553; 71010; 74176; 76937; 80048; 80053; 81001; 82550; 83690; 83880; 84484; 85025; 85027; 87040; 93005; A9579; G0378; G8987-GP; G8988-GP; J0456; J0696; J1644; J1885; J7030; J7050